=== PATIENT | female | born 1955 | race Caucasian/White ===

== ENCOUNTER 2022-07-14 10:47 | Outpatient (CLI) | payer MEDICARE | END 2022-07-14 10:48 | disposition home or self-care (01) | LOC: BICCT 10:47 | PROVIDERS: ATTEND Internal Medicine Gastroenterology | DX: K58.1 Irritable bowel syndrome with constipation (principal); R10.9 Unspecified abdominal pain; R10.2 Pelvic and perineal pain | CPT/HCPCS: 74176 ==

== ENCOUNTER 2023-04-08 07:49 | Day surgery (SDC) | payer MEDICARE ==
[2023-04-07 10:38] VITALS: BMI 26.5
[2023-04-08] MEDS ORDERED: PROPOFOL 200 MG/20 ML VIAL ONE (09:33)
[2023-04-08] MEDS ORDERED: Lidocaine 1% PF 5 ML VIAL ONE (09:33)
[2023-04-08] MEDS ORDERED: ePHEDrine Sulfate 50 MG/10 ML VIAL ONE (09:33)
== END 2023-04-08 10:53 | disposition home or self-care (01) ==
LOC: SDC 07:49
PROVIDERS: ATTEND Internal Medicine Gastroenterology
PROC: 0D958ZZ Drainage of Esophagus, Via Natural or Artificial Opening Endoscopic (ICD-10-PCS; principal; 2023-04-08)
DX: T18.128A Food in esophagus causing other injury, initial encounter (principal); K21.9 Gastro-esophageal reflux disease without esophagitis; R07.89 Other chest pain; J45.909 Unspecified asthma, uncomplicated; Z87.19 Personal history of other diseases of the digestive system; M19.90 Unspecified osteoarthritis, unspecified site; N18.30 Chronic kidney disease, stage 3 unspecified; I12.9 Hypertensive chronic kidney disease with stage 1 through stage 4 chronic kidney disease, or unspecified chronic kidney disease; E66.01 Morbid (severe) obesity due to excess calories; E89.0 Postprocedural hypothyroidism; M54.42 Lumbago with sciatica, left side; Z90.710 Acquired absence of both cervix and uterus; Z98.49 Cataract extraction status, unspecified eye; Z79.899 Other long term (current) drug therapy; Z79.890 Hormone replacement therapy; Z86.010 Personal history of colon polyps; Z68.41 Body mass index [BMI] 40.0-44.9, adult
CPT/HCPCS: J2704

== ENCOUNTER 2023-07-12 09:49 | Outpatient (CLI) | payer MEDICARE | END 2023-07-12 09:50 | disposition home or self-care (01) | LOC: BICULT 09:49 | PROVIDERS: ATTEND Physician Assistant Medical | DX: K58.1 Irritable bowel syndrome with constipation (principal); R07.89 Other chest pain; N28.1 Cyst of kidney, acquired | CPT/HCPCS: 76705 ==